=== PATIENT | male | born 1970 | race American Indian/Alaskan Native ===

== ENCOUNTER 2017-09-05 11:56 | Emergency (ER) | payer OTHER ==
[2017-09-05 12:08] VITALS: BMI 17.7
[2017-09-05] MEDS ORDERED: SODIUM CHLORIDE 1,000 ML IV ONE (13:01)
--- NOTE | 2017-09-05 13:17 | PDOC ---
History of Present Illness - General History Source: Patient Exam Limitations: No Limitations - History of Present Illness Initial Comments: 09/05/17 16:55 The patient is a 46-year-old male, with a significant past medical history of Diabetes, HTN, and Hypercholesterolemia, who presents to the ED with a few days of dizziness. Patient states that he has been feeling lightheaded for the past couple of day when he gets up and walks around. The patient has also been experiencing an intermittent midsternal chest pain that comes on when he is at rest lasting for a few min, and is sharp in nature.It does not worsen with exertion and there is no associated sob, diaphoresis, n/v. He does no have any current pain. The patient has a 2-year history of intermittent back pain and for the last several weeks it has been getting progressively worse, radiating down his left leg with associated tingling but no recent injiury/trauma. On exam , the patient is complaining of nausea, but no vomiting. The patient denies any fever, chills, diarrhea, constipation, or abdominal pain. Denies any headache, vision changes, or neck pain. PCP: Dr. Dickens <Devika Ashford - Last Filed: 09/05/17 16:55> <Abdiel Matthews - Last Filed: 09/05/17 17:51> - General Chief Complaint: Pain, Acute Stated Complaint: NAUSEA/dizziness Time Seen by Provider: 09/05/17 12:18 Past History <Devika Ashford - Last Filed: 09/05/17 16:55> - Past Medical History Diabetes: Yes HTN: Yes Hypercholesterolemia: Yes - Immunization History Immunization Up to Date: Yes - Suicide/Smoking/Psychosocial Hx Smoking Status: Yes Smoking History: Current every day smoker Have you smoked in the past 12 months: Yes Number of Cigarettes Smoked Daily: 10 Information on smoking cessation initiated: No Hx Alcohol Use: No Drug/Substance Use Hx: No Substance Use Type: None Hx Substance Use Treatment: No <Abdiel Matthews - Last Filed: 09/05/17 17:51> - Past Medical History Allergies/Adverse Reactions: Allergies Allergy/AdvReac Type Severity Reaction Status Date / Time No Known Allergies Allergy Verified 09/05/17 12:08 Home Medications: Ambulatory Orders Folic Acid - 1 mg PO DAILY 05/03/13 Lisinopril [Prinivil -] 5 mg PO DAILY 05/03/13 Thiamine HCl 100 mg PO DAILY 05/03/13 Gabapentin 200 mg PO TID 09/05/17 Insulin Glargine,Hum.rec.anlog [Julianzora Bhmuikaanastacia] 12 unit SQ BID 09/05/17 Sitagliptin Phos/Metformin HCl [Janumet 50-500 mg Tablet] 2 each PO DAILY Review of Systems - Review of Systems Able to Perform ROS?: Yes Comments:: 09/05/17 16:55 CONSTITUTIONAL: No reported: Fever, Chills, Diaphoresis, Generalized Weakness, Malaise, Loss of Appetite HEENT: No reported: Rhinorrhea, Nasal Congestion, Throat Pain, Throat Swelling, Difficulty Swallowing, Mouth Swelling, Ear Pain, Eye Pain, Visual Changes CARDIOVASCULAR: No reported: Chest Pain (resolved) Syncope, Palpitations, Irregular Heart Rate, Lightheadedness, Peripheral Edema RESPIRATORY: No reported: Cough, Shortness of Breath, SOB with Exertion, Orthopnea, Wheezing , Stridor, Hemoptysis GASTROINTESTINAL: Reported: Nausea No reported: Abdominal pain, Abdominal Distension, Vomiting, Diarrhea, Constipation, Melena, Hematochezia GENITOURINARY: No reported: Dysuria, Frequency, Urgency, Hesitancy, Flank Pain, Genital Pain MUSCULOSKELETAL: Reported: Back Pain No reported: Arthralgia, Joint Swelling, Neck Pain SKIN: No reported: Rash, Itching, Pallor HEMEATOLOGIC/IMMUNOLOGIC: No reported: Easy Bleeding, Easy Bruising, Lymphadenopathy, Frequent infections ENDOCRINE: No reported: Unexplained Weight Gain, Unexplained Weight Loss, Heat Intolerance , Cold Intolerance NEUROLOGIC: Reported: Lightheadedness, Dizziness, No reported: Headache, Focal Weakness, Paresthesias, Unsteady Gait, Seizure, Mental Status Changes, Incontinence PSYCHIATRIC: No reported: Anxiety, Depression <Devika Ashford - Last Filed: 09/05/17 16:55> *Physical Exam - Vital Signs Last Vital Signs Temp Pulse Resp BP Pulse Ox 98.1 F 96 H 16 135/78 97 09/05/17 16:49 09/05/17 16:49 09/05/17 16:49 09/05/17 16:49 09/05/17 16:49 - Physical Exam Comments: 09/05/17 16:56 GENERAL: The patient is awake, alert, and fully oriented, Nontoxic - in no acute distress. HEAD: Normocephalic, atraumatic. EYES: extraocular movements intact, sclera anicteric, conjunctiva clear. ENT: (+)Dry mucous membranes. Normal voice NECK: Normal range of motion, supple LUNGS: Breath sounds equal, clear to auscultation bilaterally. No wheezes, no rhonchi, no rales. HEART: (+)Tachycardic, No murmur, rub or gallop. ABDOMEN: Soft, nontender, normoactive bowel sounds. No guarding, no rebound.No CVA tenderness MSK: No cervical, thoracic, or lumbar tenderness. EXTREMITIES: Normal range of motion, no edema. No clubbing or cyanosis. No cords, erythema, or tenderness. NEUROLOGICAL: No facial assymetry, Normal speech, PSYCH: Normal mood, normal affect. SKIN: Warm, Dry, normal turgor, <Devika Ashford - Last Filed: 09/05/17 16:55> - Vital Signs Last Vital Signs Temp Pulse Resp BP Pulse Ox 98.2 F 108 H 16 128/86 98 09/05/17 12:05 09/05/17 12:05 09/05/17 12:05 09/05/17 12:05 09/05/17 12:05 <Abdiel Matthews - Last Filed: 09/05/17 17:51> Heart Score/ECG Review - ECG Impressions Comment:: 09/05/17 13:16 Twelve-lead EKG was performed and reviewed by me. There is normal sinus rhythm with a rate of 111 Abnormal R wave progression There are no ST or T wave abnormalities. <Abdiel Matthews - Last Filed: 09/05/17 17:51> ED Treatment Course - LABORATORY CBC & Chemistry Diagram: 09/05/17 13:30 09/05/17 13:30 - ADDITIONAL ORDERS Additional order review: Laboratory Results 09/05/17 09/05/17 09/05/17 14:40 13:41 13:36 VBG pH 7.37 POC VBG pCO2 50.5 POC VBG pO2 20.5 L Mixed VBG HCO3 28.4 H Sodium Potassium Chloride Carbon Dioxide Anion Gap BUN Creatinine Creat Clearance w eGFR POC Glucometer [phone] Random Glucose Calcium Total Bilirubin AST ALT Alkaline Phosphatase Creatine Kinase Troponin I Total Protein Albumin Urine Color Ltyellow Urine Appearance Clear Urine pH 5.0 Ur Specific [place] 1.026 Urine Protein 1+ H Urine Glucose (UA) 3+ H Urine Ketones 1+ H Urine Blood Negative Urine Nitrite Negative Urine Bilirubin Negative Urine Urobilinogen Negative Ur Leukocyte Esterase Negative Urine WBC (Auto) <1 Urine RBC (Auto) None Ur Epithelial Cells Rare Hyaline Casts 1 Urine Mucus Rare Acetone, Qual 09/05/17 09/05/17 13:30 13:30 VBG pH POC VBG pCO2 POC VBG pO2 Mixed VBG HCO3 Sodium 136 Potassium 6.4 H* D Chloride 89 L Carbon Dioxide 30 Anion Gap 17 H BUN 27 H D Creatinine 0.8 D Creat Clearance w eGFR > 60 POC Glucometer Random Glucose 203 H D Calcium 10.4 H Total Bilirubin 1.3 H D AST 305 H D ALT 239 H D Alkaline Phosphatase 116 Creatine Kinase 68 Troponin I < 0.02 Total Protein 8.3 H Albumin 4.5 Urine Color Urine Appearance Urine pH Ur Specific [place] Urine Protein Urine Glucose (UA) Urine Ketones Urine Blood Urine Nitrite Urine Bilirubin Urine Urobilinogen Ur Leukocyte Esterase Urine WBC (Auto) Urine RBC (Auto) Ur Epithelial Cells Hyaline Casts Urine Mucus Acetone, Qual Positive small 1+ 09/05/17 09/05/17 13:36 13:30 RBC 5.07 MCV 100.8 H MCHC 34.0 RDW 13.1 MPV 7.7 Neutrophils % 71.8 Lymphocytes % 16.7 D Monocytes % 9.5 Eosinophils % 1.3 Basophils % 0.7 POC Glucometer [phone] - Medications Given in the ED: ED Medications Discontinued Medications Generic Name Dose Route Start Last Admin Trade Name Cb PRN Reason Stop Dose Admin Sodium Chloride 1,000 mls @ 1,000 mls/hr 09/05/17 13:01 09/05/17 13:30 Normal Saline - IV 09/05/17 14:00 1,000 mls/hr .Q1H ONE Administration Insulin Human Regular 4 units 09/05/17 14:29 09/05/17 14:35 Novolin R Vial *For Ivpush Or Iv Drip Only* IVPUSH 09/05/17 14:30 4 units ONCE ONE Administration Sodium Bicarbonate 50 meq 09/05/17 14:29 09/05/17 14:49 Sodium Bicarbonate 8.4% - 1 meq/kg (50 meq) 09/05/17 14:30 50 meq IVPUSH Administration ONCE ONE Sodium Polystyrene Sulfonate 30 gm 09/05/17 14:29 09/05/17 14:35 Kayexalate - PO 09/05/17 14:30 30 gm ONCE ONE Administration <DejonDevika - Last Filed: 09/05/17 16:55> - LABORATORY CBC & Chemistry Diagram: 09/05/17 13:30 09/05/17 17:00 <Abdiel Matthews - Last Filed: 09/05/17 17:51> Medical Decision Making - Medical Decision Making 09/05/17 13:19 46y M hx of IDDM, HTN, HL, presents with complaint of lightheadedness, worse whe nhe is ambulting. pt also has complaint of increased atraumatic R chest pain , lasting for minutes at a time that is non exerttional without any associated sypmtoms as well as a complaint of R lower back pain radiating down his leg. on exam pt appears well with unremarkable exam beside mild tachycardia and dry mm will ck lbas to r/o dka, metabolic dernagement doubt acs for his cp - but will obtain trop x 1 and ekg his leg pain likely sciatica, no red flags A portion of this note was documented by scribe services under my direction. I have reviewed the details of the note, within reason, and agree with the documentation with the following case summary and management plan written by me 09/05/17 14:53 The patient's labs were noted for elevated potassium to 6.4, signs of peaked T waves or interval widening on EKG We'll give the patient meds for hyperkalemia, also recheck as the patient does not have any other reason for hyperkalemia 09/05/17 17:46 Pts K is normalized will dc with PMD fu suspect his original K was not correct. I discussed the physical exam findings, ancillary test results and final diagnoses with the patient. I answered all of the patient's questions. The patient was satisfied with the care received and felt comfortable with the discharge plan and treatment plan. The patient will call their primary care physician within 24 hours to arrange follow-up and will return to the Emergency Department with any new, persistent or worsening symptoms. <Abdiel Matthews - Last Filed: 09/05/17 17:51> *DC/Admit/Observation/Transfer - Attestations Scribe Attestion: 09/05/17 16:57 Documentation prepared by Devika Ashford, acting as medical office worker for Abdiel Matthews MD. <Devika Ashford - Last Filed: 09/05/17 16:55> - Discharge Dispostion Admit: No <Abdiel Matthews - Last Filed: 09/05/17 17:51> Diagnosis at time of Disposition: Dehydration Sciatica Qualifiers: Laterality: left Qualified Code(s): M54.32 - Sciatica, left side - Discharge Dispostion Disposition: HOME Condition at time of disposition: Improved - Referrals Referrals: Daniel Dickens [Primary Care Provider] - Deepak Hopkins MD [Staff Physician] - - Patient Instructions Printed Discharge Instructions: DI for Hyperglycemia -- Adult Additional Instructions: Return to the emergency department immediately with ANY new, persistent or worsening symptoms. Stay well hydrated. Your potassium was originally very high here, the repeat was normal. I suspect the initial blood work may have been spurious, but you should have this recheck by Dr. Yo. You MUST call and follow up with your doctor tomorrow for further evaluation of your symptoms. Results were discussed with you. Please make sure your doctor reviews the results of your emergency evaluation. Print Language: FRENCH - Post Discharge Activity
[2017-09-05 13:46] LABS: BASO % 0.7 % (0-2.0); EOS % 1.3 % (0-4.5); HEMATOCRIT 51.1 % (35.4-49); HEMOGLOBIN 17.4 GM/dL (11.7-16.9); LYMPH % 16.7 % (8-40); MCH 34.2 pg (25.7-33.7); MEAN CELL VOLUME 100.8 fl (80-96); MEAN PLT VOLUME 7.7 fl (7.5-11.1); MONO % 9.5 % (3.8-10.2); NEUT % 71.8 % (42.8-82.8); PLATELET COUNT 261 K/MM3 (134-434); RBC 5.07 M/mm3 (4.00-5.60); RDW 13.1 % (11.9-15.9); WHITE BLOOD COUNT 7.1 K/mm3 (4.0-10.0)
[2017-09-05 14:00] LABS: VENOUS PC02 50.5 mmHg (38-52); VENOUS PH 7.37 (7.32-7.42)
[2017-09-05 14:01] LABS: VENOUS PO2 20.5 mmHg (28-48)
[2017-09-05 14:12] LABS: ALBUMIN 4.5 g/dl (3.4-5.0); ANION GAP 17 (8-16); BILIRUBIN,TOTAL 1.3 mg/dL (0.2-1.0); BLOOD UREA NITROGEN 27 mg/dL (7-18); CALCIUM 10.4 mg/dL (8.5-10.1); CHLORIDE 89 mmol/L (98-107); CO2 30 mmol/L (21-32); CREATININE 0.8 mg/dL (0.7-1.3); GLUCOSE,RANDOM 203 mg/dL (74-106); SGOT/AST 305 U/L (15-37); SGPT/ALT 239 U/L (12-78); SODIUM 136 mmol/L (136-145); TOT PROT 8.3 g/dl (6.4-8.2)
[2017-09-05 14:13] LABS: ALK PHOS 116 U/L (45-117)
[2017-09-05 14:23] LABS: ACETONE SERUM POSITIVE SMALL 1+ (NEGATIVE)
[2017-09-05 14:25] LABS: POTASSIUM 6.4 mmol/L (3.5-5.1)
[2017-09-05] MEDS ORDERED: INSULIN REGULAR HUMAN 100 UNITS/ML *VIAL IVPUSH ONE (14:29)
[2017-09-05] MEDS ORDERED: SODIUM BICARBONATE 8.4% 50 MEQ/50 ML VIAL IVPUSH ONE (14:29)
[2017-09-05] MEDS ORDERED: SODIUM POLYSTYRENE SULFONATE 15 GM/60 ML BOTTLE PO ONE (14:29)
--- NOTE | 2017-09-05 14:33 | EKG ---
Test Reason : Blood Pressure : / mmHG Vent. Rate : 111 BPM Atrial Rate : 111 BPM P-R Int : 124 ms QRS Dur : 088 ms QT Int : 330 ms P-R-T Axes : 047 060 060 degrees QTc Int : 448 ms SINUS TACHYCARDIA SEPTAL INFARCT (CITED ON OR BEFORE 03-MAY-2013) ABNORMAL ECG WHEN COMPARED WITH ECG OF 22-FEB-2015 19:54, NO SIGNIFICANT CHANGE WAS FOUND Confirmed by MICHELL GARSIA, BEBO ([id number]) on 09/05/2017 2:33:06 PM Referred By: Confirmed By:BEBO GALARZA MD
[2017-09-05] MEDS ORDERED: SODIUM POLYSTYRENE SULFONATE 15 GM/60 ML BOTTLE ONE (14:41)
[2017-09-05] MEDS ORDERED: SODIUM BICARBONATE 8.4% - 50 ML ONE (14:41)
[2017-09-05] MEDS ORDERED: INSULIN REGULAR HUMAN 100 UNITS/ML *VIAL ONE (14:42)
[2017-09-05 15:01] LABS: URINE APPEARANCE CLEAR; URINE BILIRUBIN NEGATIVE (NEGATIVE); URINE BLOOD NEGATIVE (NEGATIVE); URINE COLOR LTYELLOW; URINE GLUCOSE (UA) 3+ (NEGATIVE); URINE KETONE 1+ (NEGATIVE); URINE LEUK ESTERASE NEGATIVE (NEGATIVE); URINE NITRITE NEGATIVE (NEGATIVE); URINE PROTEIN 1+ (NEGATIVE); URINE UROBILINOGEN NEGATIVE mg/dL (0.2-1.0)
[2017-09-05 15:06] LABS: EPI CELLS RARE /HPF (FEW); URINE HYALINE CAST 1 /lpf; URINE MUCUS RARE
[2017-09-05 16:50] VITALS: BP 135/78; PULSE 96; TEMP 98.1
[2017-09-05 17:12] LABS: ANION GAP 15 (8-16); BLOOD UREA NITROGEN 25 mg/dL (7-18); CALCIUM 9.1 mg/dL (8.5-10.1); CHLORIDE 94 mmol/L (98-107); CO2 29 mmol/L (21-32); CREATININE 0.8 mg/dL (0.7-1.3); GLUCOSE,RANDOM 165 mg/dL (74-106); POTASSIUM 4.7 mmol/L (3.5-5.1); SODIUM 138 mmol/L (136-145)
== END 2017-09-05 18:12 | disposition home or self-care (01) ==
LOC: JER 11:56
PROC: 3E0337Z Introduction of Electrolytic and Water Balance Substance into Peripheral Vein, Percutaneous Approach (ICD-10-PCS; principal; 2017-09-05)
PROC: 3E033VG Introduction of Insulin into Peripheral Vein, Percutaneous Approach (ICD-10-PCS; 2017-09-05)
PROC: 3E033GC Introduction of Other Therapeutic Substance into Peripheral Vein, Percutaneous Approach (ICD-10-PCS; 2017-09-05)
DX: E86.0 Dehydration (principal); E87.5 Hyperkalemia; M54.32 Sciatica, left side; I10 Essential (primary) hypertension; E11.9 Type 2 diabetes mellitus without complications; Z79.4 Long term (current) use of insulin; Z79.84 Long term (current) use of oral hypoglycemic drugs; E78.00 Pure hypercholesterolemia, unspecified; F17.210 Nicotine dependence, cigarettes, uncomplicated
CPT/HCPCS: 36415; 80048; 80053; 81003; 81015; 82009; 82550; 82803; 82962; 83735; 84484; 85025; 93005; 93010; 99282-25; J7030

== ENCOUNTER 2017-12-20 21:23 | Emergency (ER) | payer OTHER ==
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
[2017-12-20 21:43] VITALS: BP 112/73; PULSE 83; TEMP 98.1; BMI 25.0
[2017-12-20] MEDS ORDERED: SILVER SULFADIAZINE 1% TOP CREAM 50 GM JAR TP ONE (22:44)
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
== END 2017-12-20 23:20 | disposition home or self-care (01) ==
LOC: JER 21:23 → JERFT 21:23
PROC: 2W2RX4Z Dressing of Left Lower Leg using Bandage (ICD-10-PCS; principal; 2017-12-20)
DX: T24.202A Burn of second degree of unspecified site of left lower limb, except ankle and foot, initial encounter (principal); X08.8XXA Exposure to other specified smoke, fire and flames, initial encounter; Y93.G2 Activity, grilling and smoking food; Y92.89 Other specified places as the place of occurrence of the external cause; Y99.8 Other external cause status
CPT/HCPCS: 99281-25

== ENCOUNTER 2017-12-22 07:36 | Emergency (ER) | payer OTHER ==
[2017-12-22 07:54] VITALS: BP 113/70; TEMP 98.6; BMI 18.6
--- NOTE | 2017-12-22 07:55 | PDOC ---
Attending Attestation - Resident Resident Name: Lisa Flowers - Medical Decision Making 12/22/17 10:25 Pt presents to the ED after syncope today. History of chronic heavy ETOH use. Will check CT head to rule out intracranial bleed. Labs checked to rule out cardiac cause of syncope or electrolyte disorder, and are negative. Will reassess. Will repair laceration. <Valery Santacruz - Last Filed: 12/22/17 10:18> - HPI HPI: The patient is a 47 year old male with a PMHx of IDDM, prior syncopal episodes associated with low blood sugar, and EtOH dependence (drinks 4 glasses of hard liquor/day), who presents s/p unwitnessed syncopal episode earlier today around 4 a.m. He states that he was on his way to the bathroom when he felt lightheaded and passed out for a few seconds. He states he came-to fairly quickly and was able to ambulate following the syncopal episode. He sustained a laceration to his right eyebrow and is currently experiencing a diffuse headache. No other symptoms noted. - Physicial Exam PE: GENERAL: Awake, alert, and fully oriented, in no acute distress HEAD: No signs of trauma EYES: PERRLA, EOMI, sclera anicteric, conjunctiva clear ENT: Auricles normal inspection, hearing grossly normal, nares patent, oropharynx clear without exudates. Tongue fasiculations. NECK: Normal ROM, supple, no lymphadenopathy, JVD, or masses LUNGS: Breath sounds equal, clear to auscultation bilaterally. No wheezes, and no crackles HEART: Regular rate and rhythm, normal S1 and S2, no murmurs, rubs or gallops ABDOMEN: Soft, nontender, normoactive bowel sounds. No guarding, no rebound. No masses EXTREMITIES: Normal range of motion, no edema. No clubbing or cyanosis. No cords, erythema, or tenderness NEUROLOGICAL: Cranial nerves II through XII grossly intact. Normal speech, normal gait SKIN: 3 cm deep forehead laceration over right eyebrow, full thickness. Warm, Dry, normal turgor, no rashes. 12/22/17 11:15 <Ifeoma Torres - Last Filed: 12/22/17 11:16>
[2017-12-22] MEDS ORDERED: FOLIC ACID INJECTION - 1 MG, THIAMINE HCL 100 MG, MULTIVIT INJECTION ADULT 10 ML in SOD... IVPB ONE (08:06)
[2017-12-22] MEDS ORDERED: DIPHTH,PERTUSS(ACELL),TET 0.5 ML DISP.SYRIN IM ONE (08:06)
--- NOTE | 2017-12-22 08:32 | PDOC ---
History of Present Illness - General Chief Complaint: Syncope/Near Syncope Stated Complaint: R EYE LAC Time Seen by Provider: 12/22/17 07:51 History Source: Patient, Family Exam Limitations: No Limitations - History of Present Illness Initial Comments: This is a 47 YOM with h/o IDDM, prior syncopal episodes associated with low blood sugar, and EtOH dependence (drinks 4 glasses of hard liquor/day) who p/w syncopal episode and fall onto his right face this morning at 4 am. He stood up from bed to use the bathroom, was walking across the room, became lightheaded, and states that he passed out and fell. He believes he was out for a few seconds only, but there were no witnesses. He awakened and was able to pick himself up and walk around afterward. He notes there was blood on the floor from a right eyebrow lac, and he has had diffuse pain to his head since that time. He denies any additional symptoms. Past History - Past Medical History Allergies/Adverse Reactions: Allergies Allergy/AdvReac Type Severity Reaction Status Date / Time No Known Allergies Allergy Verified 12/22/17 07:44 Home Medications: Ambulatory Orders Folic Acid - 1 mg PO DAILY 05/03/13 Lisinopril [Prinivil] 5 mg PO DAILY 05/03/13 Thiamine HCl 100 mg PO DAILY 05/03/13 Insulin Glargine,Hum.rec.anlog [Louis Solostar] 12 unit SQ BID 09/05/17 Pregabalin [Lyrica -] 150 mg PO BID 12/20/17 COPD: No Diabetes: Yes HTN: Yes Hypercholesterolemia: Yes - Immunization History Immunization Up to Date: Yes - Suicide/Smoking/Psychosocial Hx Smoking Status: Yes Smoking History: Never smoked Have you smoked in the past 12 months: No Number of Cigarettes Smoked Daily: 10 Hx Alcohol Use: No Drug/Substance Use Hx: No Substance Use Type: None Hx Substance Use Treatment: No Review of Systems - Review of Systems Able to Perform ROS?: Yes Constitutional: No: Chills, Fever, Unexplained wgt Loss HEENTM: No: Nose Congestion, Throat Pain Respiratory: No: Cough, Shortness of Breath Cardiac (ROS): Yes: Syncope. No: Chest Pain, Palpitations ABD/GI: No: Constipated, Diarrhea, Nausea, Vomiting : No: Burning, Dysuria Musculoskeletal: No: Back Pain, Neck Pain Integumentary: Yes: Other (laceration). No: Bruising, Rash Neurological: Yes: Headache. No: Numbness, Tingling, Weakness, Dizziness Endocrine: No: Unexplained Weight Gain, Unexplained Weight Loss *Physical Exam - Vital Signs Last Vital Signs Temp Pulse Resp BP Pulse Ox 98.6 F 91 H 16 113/70 99 12/22/17 07:39 12/22/17 14:24 12/22/17 14:24 12/22/17 14:24 12/22/17 14:24 - Physical Exam General Appearance: Yes: Nourished, Appropriately Dressed, Other (Thin but otherwise well appearing male, answering appropriately, accompanied by family, right eyebrow lac). No: Apparent Distress HEENT: positive: EOMI, DMITRIY, Normal Voice, Hearing Grossly Normal, Other (no cephalohematoma, right superior medial eyebrow with 3 cm full thickness lac which is hemostatic and clean-appearing, no additional scalp laceration, no raccoon eyes, no levy sign, no hemotympanum, no CSF rhinorrhea/otorrhea). negative: Scleral Icterus (R), Scleral Icterus (L), Nasal Congestion Neck: positive: Trachea midline, Supple. negative: Tender, Rigid Respiratory/Chest: positive: Lungs Clear, Normal Breath Sounds. negative: Respiratory Distress, Crackles, Rhonchi, Stridor, Wheezing Cardiovascular: positive: Regular Rhythm, Regular Rate, S1, S2. negative: Edema , JVD, Murmur Gastrointestinal/Abdominal: positive: Normal Bowel Sounds, Soft. negative: Tender, Organomegaly, Pulsatile Mass, Guarding Musculoskeletal: positive: Normal Inspection. negative: Decreased Range of Motion, Vertebral Tenderness Extremity: positive: Normal Capillary Refill, Normal Inspection, Normal Range of Motion. negative: Tender, Cyanosis Integumentary: positive: Normal Color, Dry, Warm, Other (bilateral distal legs with baig with gauze and xeroform dressings in place). 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 negative: Responsive, EOM Palsy, Facial Droop, Numbness, Sensory Deficit, Confused, Disoriented Heart Score/ECG Review #1 NSR rate 96 with normal axis, [place] is 104 but no delta waves, normal QTc, no ST-T changes. Procedures - Laceration/Wound Repair Right Medial Frontal Wound Length: 2.6 to 5.0 cm Wound Explored: clean, no foreign body present Wound's Depth, Shape: into muscle, irregular Irrigated w/ Saline: Yes Betadine Prep: No Anesthesia: 2% Lidocaine w/ Epi Amount of Anesthetic (ccs): 5 Wound Repaired With: Sutures Suture Size/Type: 5:0, proline (#7), nylon (#1) Number of Sutures: 8 Layer Closure: Yes Deep Layer Suture Size/Type: 4:0, vycril Number of Deep Layer Sutures: 4 Sterile Dressing Applied: Yes Splint Applied: No Sling Applied: No ED Treatment Course - LABORATORY CBC & Chemistry Diagram: 12/22/17 08:51 12/22/17 08:51 - ADDITIONAL ORDERS Additional order review: 12/22/17 09:10 Urine Culture - Final Urine - Urine Clean Catch 12/22/17 12/22/17 08:58 08:51 RBC 4.36 MCV 100.8 H MCHC 34.5 RDW 13.4 MPV 7.6 Neutrophils % 86.1 H Lymphocytes % 5.2 L D Monocytes % 8.2 Eosinophils % 0.1 D Basophils % 0.4 POC Glucometer [id number] - RADIOLOGY Radiology Studies Ordered: Category Date Time Status FACIAL BONES CT W/O CONTRAST [CT] Stat CT Scan 12/22/17 10:[address] WITHOUT CONTRAST [CT] Stat CT Scan 12/22/17 10:45 Completed CXRPORT [CHEST X-RAY PORTABLE*] [RAD] Stat Radiology 12/22/17 08:35 Completed - Medications Given in the ED: ED Medications Discontinued Medications Generic Name Dose Route Start Last Admin Trade Name Freq PRN Reason Stop Dose Admin Chlordiazepoxide HCl 25 mg 12/22/17 09:31 12/22/17 09:45 Librium - PO 12/22/17 09:32 25 mg ONCE ONE Administration Diphtheria/Tetanus/Acell Pertussis 0.5 ml 12/22/17 08:06 12/22/17 09:38 Boostrix - IM 12/22/17 08:07 0.5 ml .ONCE ONE Administration Folic Acid 1 mg/ Thiamine HCl 1,000 mls @ 125 mls/hr 12/22/17 08:06 12/22/17 09:39 100 mg/ Multivitamins/Minerals IVPB 12/22/17 16:05 125 mls/hr 10 ml/ Sodium Chloride ONCE ONE Administration Lidocaine/Epinephrine 5 ml 12/22/17 12:23 12/22/17 13:06 Xylocaine 2%/Epi [id number] Pf INF 12/22/17 12:24 5 ml ONCE ONE Administration Medical Decision Making - Medical Decision Making 12/22/17 08:36 Pt p/w fall and head injury in the setting of syncope, with right eyebrow lac. Initial Vital Signs Temp Pulse Resp BP Pulse Ox 98.6 F 97 H 18 113/70 99 12/22/17 07:39 12/22/17 07:39 12/22/17 07:39 12/22/17 07:39 12/22/17 07:39 Exam: Results as noted in Physical Exam section.scalp contusion, DDX for syncope IBNLT: hypoglycemia, reflex (neurocardiogenic e.g. vasovagal; situational e.g. micturition/post-tussive/post-exercise; carotid sinus hypersensitivity), cardiovascular (arrhythmia e.g. sick sinus syndrome, conduction abnormality e.g. SVT/WPW/Brugada/long QT/ventricular dysrhythmia, structural heart disease e.g. valvular disease/HOCM/left atrial myxoma/MD; PE; cardiac tamponade), orthostatic hypotension (volume depletion e.g. hemorrhage/ vomiting/diarrhea/diuretics; drugs e.g. vasodilators/[id number]/clonidine/ phenothiazines like Haldol; autonomic failure e.g. spinal cord injury/DM neuropathy/Parkinsons), or other causes not true syncope d/t subsequent neuro deficit (TIA/CVA, SAH, seizure, metabolic/electrolyte derangement e.g. DM/DKA tend to cause gradual slide into unconsciousness), infection/sepsis/vitals abnormalities, pulmonary HTN, etc. DDX for head injury IBNLT: simple laceration, scalp contusion, concussion, ICH, skull fracture, facial bone fracture W/U ordered: Head and Facial Bones CT, Labs including cardiac w/u, EKG, CXR TX ordered: tDap, banana bag EKG: Reviewed; results as noted in ECG Review section. CXR: Nothing acute other than STS. CT Head: Nothing acute other than STS. CT Facial Bones: Nothing acute other than STS. Laboratory Tests 12/22/17 12/22/17 12/22/17 08:51 08:51 08:51 WBC 11.5 H RBC 4.36 Hgb 15.1 Hct 43.9 MCV 100.8 H MCH 34.7 H MCHC 34.5 RDW 13.4 Plt Count 157 D MPV 7.6 Absolute Neuts (auto) 9.9 Neutrophils % 86.1 H Lymphocytes % 5.2 L D Monocytes % 8.2 Eosinophils % 0.1 D Basophils % 0.4 Nucleated RBC % 0 PT with INR 11.30 INR 1.00 Sodium 135 L Potassium 5.4 H Chloride 95 L Carbon Dioxide 30 Anion Gap 10 BUN 17 Creatinine 0.8 Creat Clearance w eGFR > 60 Random Glucose 276 H D Calcium 9.0 Phosphorus 4.0 D Magnesium 1.6 L Total Bilirubin 1.7 H AST 161 H D ALT 215 H Alkaline Phosphatase 117 Creatine Kinase Troponin I Total Protein 7.0 Albumin 3.7 Urine Color Urine Appearance Urine pH Ur Specific [place] Urine Protein Urine Glucose (UA) Urine Ketones Urine Blood Urine Nitrite Urine Bilirubin Urine Urobilinogen Ur Leukocyte Esterase Urine WBC (Auto) Urine RBC (Auto) Ur Epithelial Cells Urine Bacteria Urine Mucus Alcohol, Quantitative 12/22/17 12/22/17 12/22/17 08:51 09:10 10:30 WBC RBC Hgb Hct MCV MCH MCHC RDW Plt Count MPV Absolute Neuts (auto) Neutrophils % Lymphocytes % Monocytes % Eosinophils % Basophils % Nucleated RBC % PT with INR INR Sodium Potassium Chloride Carbon Dioxide Anion Gap BUN Creatinine Creat Clearance w eGFR Random Glucose Calcium Phosphorus Magnesium Total Bilirubin AST ALT Alkaline Phosphatase Creatine Kinase 145 Troponin I < 0.02 Total Protein Albumin Urine Color Yellow Urine Appearance Clear Urine pH 6.0 Ur Specific [place] 1.028 Urine Protein 2+ H Urine Glucose (UA) 3+ H Urine Ketones 1+ H Urine Blood Negative Urine Nitrite Negative Urine Bilirubin Negative Urine Urobilinogen 2.0 Ur Leukocyte Esterase Negative Urine WBC (Auto) 3 Urine RBC (Auto) 3 Ur Epithelial Cells Rare Urine Bacteria Few Urine Mucus Rare Alcohol, Quantitative 7.15 H* Laceration repair as noted in Procedures section. Reassessment: Exam benign. Vital Signs Temperature 98.6 F 12/22/17 07:39 Pulse Rate 91 H 12/22/17 14:24 Respiratory Rate 16 12/22/17 14:24 Blood Pressure 113/70 12/22/17 14:24 O2 Sat by Pulse Oximetry (%) 99 12/22/17 14:24 DISCHARGE The patient's EtOH level is high but he is not clinically intoxicated at this time. Laceration has been repaired without issue, good approximation, hemostatic. Tetanus status is now updated. They have been observed without AMS, n/v, LOC, or focal neuro findings in the ED. Workup is not concerning for emergency-level pathology at this time. The Pt is appropriate for discharge with close outpatient follow up. They are comfortable with this plan and will follow up with their PCP in 1-3 days. Return precautions for concussion and CHI are discussed and they will come back to the ER if necessary. *DC/Admit/Observation/Transfer Diagnosis at time of Disposition: Fall from ground level, Alcohol use disorder Eyebrow laceration Qualifiers: Encounter type: initial encounter Laterality: right Qualified Code(s): S01.111A - Laceration without foreign body of right eyelid and periocular area, initial encounter Burn of leg, left, second degree Qualifiers: Encounter type: subsequent encounter Qualified Code(s): T24.202D - Burn of second degree of unspecified site of left lower limb, except ankle and foot, subsequent encounter - Discharge Dispostion Disposition: HOME Condition at time of disposition: Stable Decision to Admit order: No - Referrals Referrals: [facility] [place] [facility] [Provider Group] - Patient Instructions Printed Discharge Instructions: DI for Syncope in Adults (Fainting), DI for Laceration Repair Additional Instructions: You were seen in the ER for fainting (syncope). We did lab work on the blood and urine, an electrocardiogram, a chest x-ray, and CT scan imaging, and we did not find any concerning abnormalities. We repaired your eyebrow laceration and updated your tetanus vaccination. All the symptoms had resolved by the end of your ER visit. After our assessment, we do not believe you are having a medical emergency at this time, and we believe you are safe to go home. Please stay well hydrated and eat a balanced diet, and take your diabetes medications like you are supposed to. Remember to eat when taking the medications, and check your blood sugar at home. Please follow up with your regular doctor(s) in 1-3 days. Call their clinic as soon as possible, tell them you were seen in the ER for passing out, and tell them you need an appointment. You need to talk with them about your leg baig, and you should have your sutures removed in about 6 days. If you have any new or worsening symptoms, especially another episode of fainting, palpitations, chest discomfort, shortness of breath, sweats, nausea, or other symptoms, please come back to the ER at any time (24 hours a day). If you are having severe or life threatening symptoms, or symptoms that make it unsafe to drive or have someone drive you, please call 911. - Post Discharge Activity
[2017-12-22 09:13] LABS: BASO % 0.4 % (0-2.0); EOS % 0.1 % (0-4.5); HEMATOCRIT 43.9 % (35.4-49); HEMOGLOBIN 15.1 GM/dL (11.7-16.9); LYMPH % 5.2 % (8-40); MCH 34.7 pg (25.7-33.7); MCHC 34.5 g/dl (32.0-35.9); MEAN CELL VOLUME 100.8 fl (80-96); MEAN PLT VOLUME 7.6 fl (7.5-11.1); MONO % 8.2 % (3.8-10.2); NEUT % 86.1 % (42.8-82.8); PLATELET COUNT 157 K/MM3 (134-434); RBC 4.36 M/mm3 (4.00-5.60); RDW 13.4 % (11.9-15.9); WHITE BLOOD COUNT 11.5 K/mm3 (4.0-10.0)
[2017-12-22 09:25] LABS: URINE APPEARANCE CLEAR; URINE BILIRUBIN NEGATIVE (<2.0 mg/dL); URINE COLOR YELLOW; URINE GLUCOSE (UA) 3+ (NEGATIVE); URINE KETONE 1+ (NEGATIVE); URINE LEUK ESTERASE NEGATIVE (NEGATIVE); URINE NITRITE NEGATIVE (NEGATIVE)
[2017-12-22 09:26] LABS: PROTHROMBIN TIME (PATIENT) 11.3 SEC (9.7-13.0)
[2017-12-22] MEDS ORDERED: chlordiazePOXIDE HCL 25 MG CAPSULE PO ONE (09:31)
[2017-12-22 09:34] LABS: URINE PROTEIN 2+ (NEGATIVE)
[2017-12-22 09:36] LABS: EPI CELLS RARE /HPF (FEW); URINE BACTERIA FEW /hpf (NONE SEEN); URINE MUCUS RARE
[2017-12-22] MEDS ORDERED: chlordiazePOXIDE HCL 25 MG CAPSULE ONE (09:40)
[2017-12-22 09:41] LABS: ALBUMIN 3.7 g/dl (3.4-5.0); ANION GAP 10 (8-16); BLOOD UREA NITROGEN 17 mg/dL (7-18); CHLORIDE 95 mmol/L (98-107); CO2 30 mmol/L (21-32); GLUCOSE,RANDOM 276 mg/dL (74-106); MAGNESIUM 1.6 mg/dL (1.8-2.4); POTASSIUM 5.4 mmol/L (3.5-5.1); SODIUM 135 mmol/L (136-145)
[2017-12-22 09:46] LABS: ALK PHOS 117 U/L (45-117); BILIRUBIN,TOTAL 1.7 mg/dL (0.2-1.0); CREATININE 0.8 mg/dL (0.7-1.3); SGOT/AST 161 U/L (15-37); SGPT/ALT 215 U/L (12-78)
--- NOTE | 2017-12-22 10:08 | EKG ---
Test Reason : Blood Pressure : / mmHG Vent. Rate : 096 BPM Atrial Rate : 096 BPM P-R Int : 104 ms QRS Dur : 092 ms QT Int : 358 ms P-R-T Axes : 027 044 040 degrees QTc Int : 452 ms SINUS RHYTHM WITH SHORT WA OTHERWISE NORMAL ECG WHEN COMPARED WITH ECG OF 05-SEP-2017 13:05, CRITERIA FOR SEPTAL INFARCT ARE NO LONGER PRESENT Confirmed by BEBO GALARZA MD ([id number]) on 12/22/2017 10:08:23 AM Referred By: Confirmed By:BEBO GALARZA MD
[2017-12-22] MEDS ORDERED: LIDO 2%/EPI 1:200000 PRESRVFRE (20 ML SDVIAL) INF ONE (12:23)
[2017-12-22] MEDS ORDERED: LIDOCAINE 1%/EPI 1:100000 (20 ML MULTI DOSE VIAL) ONE (12:28)
[2017-12-22 14:30] VITALS: PULSE 91
== END 2017-12-22 14:52 | disposition home or self-care (01) ==
LOC: JER 07:36
PROC: 0JQ10ZZ Repair Face Subcutaneous Tissue and Fascia, Open Approach (ICD-10-PCS; principal; 2017-12-22)
PROC: 3E033GC Introduction of Other Therapeutic Substance into Peripheral Vein, Percutaneous Approach (ICD-10-PCS; 2017-12-22)
DX: R55 Syncope and collapse (principal); S01.111A Laceration without foreign body of right eyelid and periocular area, initial encounter; R51 Headache; F10.10 Alcohol abuse, uncomplicated; W18.39XA Other fall on same level, initial encounter; Y93.89 Activity, other specified; Y92.013 Bedroom of single-family (private) house as the place of occurrence of the external cause; Y99.8 Other external cause status
CPT/HCPCS: 36415; 70450-TC; 70486-TC; 71045-TC-FY; 80053; 80307; 81003; 81015; 82550; 82962; 83735; 84100; 84484; 85025; 85610; 87086; 90715; 93005; 93010; 99285-25; J7030

== ENCOUNTER 2018-10-28 11:44 | Emergency (ER) | payer OTHER | END 2018-10-28 14:45 | LOC: JER 11:44 ==

== ENCOUNTER 2022-11-16 13:44 | Emergency (ER) | payer BC, OTHER ==
[2022-11-16 14:11] VITALS: RESP 18; BMI 20.7
[2022-11-16 14:52] LABS: BASO % 0.7 % (0-2.0); EOS % 3.8 % (0-4.5); HEMATOCRIT 36.9 % (35.4-49); HEMOGLOBIN 12.6 GM/dL (11.7-16.9); LYMPH % 23.2 % (8-40); MCH 32.1 pg (25.7-33.7); MCHC 34.3 g/dl (32.0-35.9); MEAN CELL VOLUME 93.7 fl (80-96); MEAN PLT VOLUME 7.5 fl (7.5-11.1); NEUT % 62.3 % (42.8-82.8); PLATELET COUNT 324 10^3/uL (134-434); RBC 3.94 M/mm3 (4.00-5.60); RDW 13.5 % (11.9-15.9); WHITE BLOOD COUNT 8.1 K/mm3 (4.0-10.0)
[2022-11-16 15:08] LABS: CHLORIDE 103 mmol/L (98-107); POTASSIUM 4.2 mmol/L (3.5-5.1); SODIUM 138 mmol/L (136-145)
[2022-11-16 15:10] LABS: ANION GAP 10 MMOL/L (8-16); CO2 25 mmol/L (21-32)
[2022-11-16 15:11] LABS: ALBUMIN 2.7 g/dl (3.4-5.0); BLOOD UREA NITROGEN 21.4 mg/dL (7-18); CALCIUM 9.5 mg/dL (8.5-10.1)
[2022-11-16 15:13] LABS: SGPT/ALT 27 U/L (13-61)
[2022-11-16 15:14] LABS: PHOSPHOROUS 4.4 mg/dL (2.5-4.9); SGOT/AST 31 U/L (15-37)
[2022-11-16 15:15] LABS: TOT PROT 5.9 g/dl (6.4-8.2)
[2022-11-16 15:17] LABS: ALK PHOS 86 U/L (45-117)
[2022-11-16 15:38] LABS: GLUCOSE,RANDOM 48 mg/dL (74-106)
[2022-11-16 17:01] VITALS: BP 145/94; PULSE 81; TEMP 98.9
== END 2022-11-16 18:26 | disposition home or self-care (01) ==
LOC: JER 13:44
DX: E11.649 Type 2 diabetes mellitus with hypoglycemia without coma (principal); R42 Dizziness and giddiness
CPT/HCPCS: 36415; 70450-TC; 80053; 80307; 82550; 82553; 82962; 83735; 84100; 84484; 85025; 93005; 93010; 99285-25